=== PATIENT | male | born 1960 | race Caucasian/White ===

== ENCOUNTER 2021-04-20 14:02 | Outpatient (REF) | payer BC, SELFPAY ==
--- NOTE | ~2021-04-20 | MR_ITS ---
EXAMINATION: MR BRAIN WITHOUT CONTRAST CLINICAL INFORMATION: Mild cognitive impairment. COMPARISON: None available. TECHNIQUE: MRI of the brain was obtained using routine sequences without contrast. FINDINGS: No focal restricted diffusion is demonstrated to suggest acute or subacute cerebral ischemia. No evidence of acute or chronic hemorrhagic products on heme-sensitive imaging. Few scattered periventricular and deep white matter T2 FLAIR hyperintensities consistent with mild underlying microangiopathy. The ventricles are normal in morphology and size. No abnormal mass effect. No midline shift. Normal appearance of the pituitary gland. Normal positioning of the cerebellar tonsils. Normal arterial and venous vascular flow voids are present. Normal, homogeneous marrow signal. Mild mucosal thickening of the paranasal sinuses. No signal abnormalities within the mastoids. MR/MR head/brain wo con IMPRESSION: 1. No acute intracranial abnormalities. 2. Minimal nonspecific white matter changes most commonly seen with mild underlying microangiopathy.
--- NOTE | ~2021-04-20 | XR_ITS ---
EXAMINATION: X-RAY ORBITS CLINICAL INFORMATION: Pre-MRI clearance. Question tear implants. COMPARISON: None TECHNIQUE: 2 views of the orbits were obtained. XR/XR pre mri screening FINDINGS/IMPRESSION: No radiopaque foreign body identified. No gross osseous fracture. Paranasal sinuses appear well aerated.
[2021-04-20 16:33] LABS: Folate > 20.0 ng/mL (> or = 4.0); Vitamin B12 519 pg/mL (200-900)
[2021-04-21 07:27] LABS: Lyme Abs Screen <0.90 index
[2021-04-22 20:31] LABS: IgA 189 mg/dL (47-310); IgG 834 mg/dL (600-1640); IgM 30 mg/dL (50-300)
== END 2021-04-20 14:03 | disposition home or self-care (01) ==
LOC: HO.MRI 14:02
PROVIDERS: PCP Internal Medicine; Visit Provider Psychiatry & Neurology Neurology
DX: G47.61 Periodic limb movement disorder (principal); G31.84 Mild cognitive impairment of uncertain or unknown etiology; Z98.890 Other specified postprocedural states
CPT/HCPCS: 36415; 70551; 82607; 82746; 82784; 86334; 86617; 86618